=== PATIENT | female | born 1955 | race Caucasian/White ===

== ENCOUNTER → 2017-05-29 | Outpatient (CLI) | payer OTHER | LOC: RAD 08:35 | DX: Z12.31 Encounter for screening mammogram for malignant neoplasm of breast (principal) ==

== ENCOUNTER → 2017-08-22 | Outpatient (CLI) | payer OTHER | LOC: SLEEPLAB 08-01 12:42 | DX: G47.33 Obstructive sleep apnea (adult) (pediatric) (principal) ==

== ENCOUNTER → 2018-07-30 | Outpatient (CLI) | payer OTHER | LOC: RAD 07-16 10:17 | DX: Z12.31 Encounter for screening mammogram for malignant neoplasm of breast (principal) ==

== ENCOUNTER → 2019-06-14 | Outpatient (CLI) | payer OTHER ==
[~2019-06-14] VITALS: Ht 162.6 cm; Wt 127.5 kg
[~2019-06-14] MED LIST: CO-ENZYME Q101 EACH PO; DILTIAZEM ER180 M2 PO; ELIQUIS5 MG PO; FISH OIL 1,0001 EAC9 PO; FLEXERIL PO; IBUPROFEN 600600 M1 PO; MIRAPEX0.5 MG PO; NORTRIPTYLINE H25 M3 PO; PROAIR HFA8.5 GM INH; SERTRALINE HCL100 MG PO; SIMVASTATIN40 MG PO; VALSARTAN-HCTZ1 EAC1 PO; VITAMIN D-32000 UNIT PO
== END | disposition home or self-care (01) ==
LOC: GI 06-07 15:39
DX: Z12.11 Encounter for screening for malignant neoplasm of colon (principal); Z86.010 Personal history of colon polyps; K64.8 Other hemorrhoids; I10 Essential (primary) hypertension; E78.00 Pure hypercholesterolemia, unspecified; F32.9 Major depressive disorder, single episode, unspecified; Z95.0 Presence of cardiac pacemaker; Z86.73 Personal history of transient ischemic attack (TIA), and cerebral infarction without residual deficits; Z88.0 Allergy status to penicillin; Z79.899 Other long term (current) drug therapy; Z90.710 Acquired absence of both cervix and uterus; Z96.652 Presence of left artificial knee joint; Z79.01 Long term (current) use of anticoagulants; Z98.890 Other specified postprocedural states
CPT/HCPCS: 62110; 62900

== ENCOUNTER → 2019-08-02 | Outpatient (CLI) | payer OTHER | LOC: RAD 11:02 | DX: Z12.31 Encounter for screening mammogram for malignant neoplasm of breast (principal) ==

== ENCOUNTER → 2020-08-03 | Outpatient (CLI) | payer OTHER | LOC: BC 12:46 | PROVIDERS: ATTEND Nurse Practitioner | DX: Z12.31 Encounter for screening mammogram for malignant neoplasm of breast (principal) ==

== ENCOUNTER → 2020-10-05 | Outpatient (CLI) | payer OTHER | LOC: RAD 08:49 | PROVIDERS: ATTEND Family Medicine | DX: M79.89 Other specified soft tissue disorders (principal) ==

== ENCOUNTER → 2021-01-15 | Outpatient (CLI) | payer OTHER | LOC: RAD 12:07 | PROVIDERS: ATTEND Nurse Practitioner | DX: M25.571 Pain in right ankle and joints of right foot (principal); M77.31 Calcaneal spur, right foot; M19.071 Primary osteoarthritis, right ankle and foot; M25.471 Effusion, right ankle ==

== ENCOUNTER → 2021-04-05 | Day surgery (SDC) | payer OTHER ==
[~2021-04-05] VITALS: Ht 162.6 cm; Wt 137.9 kg
[~2021-04-05] MED LIST changes: +CELECOXIB200 MG PO; +LEVOTHYROXINE25 MCG PO; +OMEPRAZOLE40 MG PO; +XARELTO20 MG PO
--- NOTE | ~2021-04-05 | O ---
[facility] [place] [address] OPERATIVE REPORT Name: MO MACDONALD Room #: REG [facility].#: [id number] Admission: 04/05/21 Attend Phys: Nik Mabry MD Discharge: Date of : 53 Report #: [id number] THIS REPORT FOR: cc: Li Solis DNP, Mary E. DNP Joseph, Sigi P. MD ~ DATE OF SERVICE: 04/05/2021 PREOPERATIVE DIAGNOSIS: Failed lap-band. POSTOPERATIVE DIAGNOSIS: Failed lap-band. OPERATIVE PROCEDURE DONE: Laparoscopic lap band removal and port removal. OPERATING SURGEON: Nik Mabry MD. INDICATIONS FOR THE PROCEDURE: The patient is a 65-year-old female who has a history of a lap band placement. The patient managed to lose some weight; however, her weight loss was plateaued and has been having reflux symptoms and dysphagia and wishes to have this removed. The patient was advised lap band removal. PROCEDURE IN DETAIL: After explaining to the patient in detail and informed consent was obtained, the patient was identified in the preoperative holding area, the patient was transferred to the operating room and was placed in supine position. Sequential compression devices were placed for DVT prophylaxis. Preoperative antibiotics were given. After induction of anesthesia, the abdomen was prepped and draped in a sterile fashion. Through a left upper quadrant 1 cm incision and using Optiview technique, peritoneal cavity was entered and pneumoperitoneum was created. Thereafter, under direct vision, another 5 mm trocar was placed in the right mid abdomen. There were some adhesions that were noted in the right upper quadrant region, which had to be taken down to facilitate placement of another 12 mm trocar in the right flank through a 1 cm incision in the epigastrium, a Sofie retractor was introduced and the left lobe of the liver was retracted. Upon initial inspection, the lap band appeared to be in place. The adhesions over the lap band was gently taken down using hook electrocautery. The lap band was then unbuckled. The tubing was divided distal to the hub. The lap band was then removed. Absolute hemostasis was ensured. The abdomen was then deflated. I then identified the port in the epigastrium, extended the epigastric incision by another 2 cm. The port was then dissected off circumferentially and the port was then removed with the tubing intact. The incisions were then closed with a 4-0 Monocryl. Dermabond was applied. The patient was stable at the end of the procedure, the patient was awoken from anesthesia and was transferred to the recovery room in stable condition. [address] [address] OPERATIVE REPORT Name: MO MACDONALD Room #: REG [facility].#: [id number] Admission: 04/05/21 Attend Phys: Nik Mabry MD Discharge: Date of : 53 Report #: [id number] ESTIMATED BLOOD LOSS: Minimal. CONDITION: The patient is stable. FLUIDS GIVEN: Per anesthesia notes. SPECIMEN SENT: Lap band. COMPLICATIONS: None. ANESTHESIA: General anesthesia. By: [id number] Nik Mabry MD /nt
[2021-04-05 12:04] VITALS: BP 160/86
[2021-04-05 14:33] VITALS: BP 160/86
== END | disposition home or self-care (01) ==
LOC: OR 11:08
PROVIDERS: ATTEND Surgery
DX: K95.09 Other complications of gastric band procedure (principal); I10 Essential (primary) hypertension; E78.5 Hyperlipidemia, unspecified; J43.9 Emphysema, unspecified; I48.91 Unspecified atrial fibrillation; F32.9 Major depressive disorder, single episode, unspecified; Z98.890 Other specified postprocedural states; Z79.899 Other long term (current) drug therapy; Z96.653 Presence of artificial knee joint, bilateral; Z90.710 Acquired absence of both cervix and uterus; Z86.73 Personal history of transient ischemic attack (TIA), and cerebral infarction without residual deficits; Z95.0 Presence of cardiac pacemaker; Z98.41 Cataract extraction status, right eye; Z98.42 Cataract extraction status, left eye; Z79.01 Long term (current) use of anticoagulants
CPT/HCPCS: 50010; 50101; 50386; 50555; 52265; 52266; 53307; 54022; 54118; 56462; 56525; 56526; 57092; 58574; 58587; 58911; 62110; 62900; 70005

== ENCOUNTER 2021-06-05 13:36 | Inpatient (IN) | payer OTHER ==
[~2021-06-05] VITALS: Ht 162.6 cm; Wt 142.9 kg
--- NOTE | ~2021-06-05 | O ---
[facility] [place] [address] OPERATIVE REPORT Name: MO MACDONALD Room #: 436-P [facility] IN M.R.#: [id number] Admission: 06/05/21 Attend Phys: Yomi Alcazar MD Discharge: 06/11/21 Date of : 53 Report #: [id number] THIS REPORT FOR: cc: Li Solis DNP, Mary E. DNP Deardorff, Valerie A. MD ~ DATE OF SERVICE: 06/07/2021 PREOPERATIVE DIAGNOSES: Left index finger abscess with flexor tenosynovitis. POSTOPERATIVE DIAGNOSES: Left index finger abscess with flexor tenosynovitis. PROCEDURE PERFORMED: Left index finger incision and debridement, index flexor tendon sheath and dorsal abscess x 2. SURGEON: Dr. Mary Ellen Burgess. TYPE OF ANESTHESIA: General mask anesthesia. ESTIMATED BLOOD LOSS: Minimal. TOURNIQUET TIME: Approximately 15 minutes. COMPLICATIONS: None. CONDITION: Stable. DISPOSITION: To recovery room. INDICATIONS: The patient is a 65-year-old female with the above-mentioned diagnoses. She has failed IV antibiotic treatment for approximately 36-48 hours as well as failed oral antibiotic treatment for approximately 48 hours prior to the IV antibiotic treatment. The risks, benefits, alternatives and complications were discussed including but not limited to infection, damage to vessels or nerves, incomplete wound healing, incomplete resolution of the infection necessitating more surgery and wound healing problems and stiffness. Informed consent was obtained, the correct extremity was identified and labeled by myself after verbal confirmation of the patient as well as visual confirmation and signed informed consent. DESCRIPTION OF PROCEDURE: The patient was brought to the operating room and placed in supine position. The left lower extremity was sterilely prepped and draped in the usual fashion. Timeout was taken to verify correct patient, procedure, operative site, all concurred. The arm was elevated, exsanguinated proximal to the wrist and the tourniquet was inflated. Next, there were 2 puncture wounds on the dorsal aspect of the index finger that had focal [address] [address] OPERATIVE REPORT Name: TORRESMO ISAIAS Room #: 436-[facility] IN M.R.#: [id number] Admission: 06/05/21 Attend Phys: Yomi Alcazar MD Discharge: 06/11/21 Date of : 53 Report #: [id number] erythema. The skin was incised. Dissection was carried down bluntly with hemostat. No definite pockets of purulent fluid were found. The areas were thoroughly debrided with a synovial rongeur. Next, attention was placed to the flexor tendon sheath. A Tavo type incision was made at the PIP joint and then a proximal oblique incision was made proximal to the A1 gilda. Dissection was carried down through fascia with tenotomy scissors in each incision. Dissection was carried all the way to the flexor tendon sheath, taking care to protect neurovascular structures. The flexor tendon sheath was identified. A cloudy fluid was immediately encountered. Next, this tendon sheath was irrigated thoroughly using an 18-gauge angiocatheter and 20 mL syringes. The tendon sheath was thoroughly irrigated. The remainder of the wounds were thoroughly irrigated. Approximately 50% of the A1 gilda was incised in order to facilitate irrigation. The wounds were all thoroughly irrigated. The tourniquet was deflated. The wounds were dressed with sterile gauze. She was placed in a bulky dressing. All fingers were pink, brisk capillary refill at the conclusion of case. All sponge and needle counts were correct. The patient transferred to postoperative recovery room in stable condition. By: [id number] Mary Ellen Burgess MD /nt
[2021-06-05 13:39] VITALS: BP 181/84
[2021-06-05 14:01] LABS: ABSOLUTE NEUTROPHILS 5.1 thou/uL (1.4-8.2); BASOPHILS 0.7 % (0.0-2.0); EOSINOPHILS 3.1 % (0.0-3.0); HEMATOCRIT 33.6 % (37.0-47.0); HEMOGLOBIN 10.5 gm/dL (12.0-15.0); LYMPHOCYTES 24.2 % (24.0-44.0); MCH 24.1 pg (26.0-34.0); MCHC 31.3 g/dL (28.0-37.0); MONOCYTES 7.2 % (1.0-8.0); PLATELET COUNT 267 thou/uL (150-400); POLYS 64.8 % (36.0-66.0); RBC 4.37 mil/uL (4.20-5.00); RDW 16.1 % (10.5-14.5); WBC 7.9 thou/uL (4.0-11.0)
[2021-06-05 14:10] LABS: CALCIUM 8.9 mg/dL (8.5-10.1); CREATININE 0.9 mg/dL (0.6-1.0)
[2021-06-05 14:17] LABS: ALBUMIN 3.7 g/dL (3.4-5.0); TOTAL BILIRUBIN 0.4 mg/dL (0.2-1.0); TOTAL PROTEIN 7.8 g/dL (6.4-8.2)
[2021-06-05] MEDS ORDERED: HYDROCODON-ACE1 EAC8 PO (14:23)
[2021-06-05 14:34] VITALS: BP 137/67
[2021-06-05 18:22] VITALS: BP 127/48
[2021-06-05 20:33] VITALS: BP 151/76
--- NOTE | 2021-06-06 03:41 | NUR ---
ADMISSION ASSESSMENT COMPLETED. PT ALERT AND ORIENTED. WITH CAT BITE TO LEFT HAND. IVF INFUSING WELL IV ABTS GIVEN, AFEBRILE. UP STEADILY TO THE BATHROOM.VOIDING ADEQUATELY. L HAND ELEVATED ON PILLOW. SWELLING GOING DOWN. SPOT WELDER LINE AND WITH SOME REDNESS.DENIES NEED FOR PIN MEDS.CPAP AT [facility].
[2021-06-06 05:26] LABS: ABSOLUTE NEUTROPHILS 3.9 thou/uL (1.4-8.2); BASOPHILS 0.7 % (0.0-2.0); EOSINOPHILS 2.8 % (0.0-3.0); HEMATOCRIT 32.1 % (37.0-47.0); HEMOGLOBIN 10.3 gm/dL (12.0-15.0); MCH 24.5 pg (26.0-34.0); MCV 76.4 fL (80.0-100.0); MONOCYTES 6.3 % (1.0-8.0); PLATELET COUNT 247 thou/uL (150-400); POLYS 64.2 % (36.0-66.0); RDW 16.2 % (10.5-14.5); WBC 6.1 thou/uL (4.0-11.0)
[2021-06-06 06:07] LABS: MAGNESIUM 2.1 mg/dL (1.8-2.4); POTASSIUM 4.1 mmol/L (3.5-5.1)
[2021-06-06 08:22] VITALS: BP 136/74
--- NOTE | 2021-06-06 13:36 | NUR ---
ASSUMED PT CARE THIS AM. PT IS ALERT & ORIENTED X4. PT HAS IV SITE ON LAC RUNNING NS @80ML/HR. PT IS UP AD LIZZIE TO THE BATHROOM. LAST BM WAS YESTERDAY. PT USES CPAP FROM HOME. PT C/O OF PAIN ON L HAND AND GIVEN PAIN MEDICATION AND EDUCATED TO ELEVATED L HAND. PT TOLERATED DIET AND MEDICATION. PT IS CURRENTLY SITTING ON THE CHAIR. WILL CONTINUE TO MONITOR PT. FOLLOW POC.
--- NOTE | 2021-06-06 14:14 | NUR ---
ASSESSMENT: CM REVIEWED CHART AND SPOKE WITH PT AT THE BEDSIDE. PT WAS ADMITTED AFTER A CAT BIT AND POSSIBLE CELLULITIS. PT IS BEING SEEN BY ID AND ORTHO. PT MAY REQUIRE A SURGICAL DEBRIDEMENT IF NO SIGNS OF IMPROVEMENT. PT IS CURRENTLY ON IV ANBX. PT REPORTS LIVING AT HOME WITH HER IN A HOUSE. PT REPORTS 2 STEPS TO ENTER WITH NO STEPS ONCE INSIDE. PT STATES SHE IS NORMALLY INDEPENDENT WITH ADLS AND AMBULATION BUT DOES HAVE A WALKER AT HOME FROM A PAST SURGERY. PT ALSO HAS A CPAP MACHINE FOR BEDTIME. PER RECORDS PT TOOK IN A STREY CAT THAT BIT HER WHEN SHE PLACED HER HAD IN THE [place]. PT REPORTS NO HX OF PAST HH OR SNF. PT MAY REQUIRE IV ANBX BUT CM WILL AWAIT FURTHER RECOMMENDATIONS AT THIS TIME.
[2021-06-06 16:25] VITALS: BP 137/68
[2021-06-06 19:02] VITALS: BP 150/77
--- NOTE | 2021-06-07 02:15 | NUR ---
ASSUMED CARE OF PT AT 1900. PT IS A/O X4 AND IS UP WITH SBA TO THE BR. ROOM AIR. VSS AFEBRILE. KPAD IN PLACE TO LEFT HAND PER INSTRUCTION OF WHO VISITED THIS EVENING. PT C/O PAIN TO THE LEFT HAND. PRN PAIN MEDICATION GIVEN DIRECTED. FALL PRECAUTIONS IN PLACE, CALL LIGHT IS WITHIN REACH. AT THIS TIME PT IS IN HER BED WEARING HER CPAP MACHINE APPEARING TO BE RESTING WITH EYES CLOSED WITHOUT ANY SIGNS OF DISTRESS. PT IS PLEASANT AND COOPERATIVE. CALLS OUT APPROPRIATELY FOR ASSISTANCE.
[2021-06-07 04:18] VITALS: BP 107/57
[2021-06-07 07:13] VITALS: BP 139/76
--- NOTE | 2021-06-07 11:31 | NUR ---
Assumed pt care this am, left hand and fore arm edema noted with heating pad on. Up ad frances, was placed NPO and went down for surgery this am.
--- NOTE | 2021-06-07 11:33 | NUR ---
Pt triggers for high BMI. Noted with dx cat bite with cellulitis/infection L hand. NPO majority of this visit, on ABT. Not in room x 3 attempts to visit this date. Follow up for nutrition education needs.
--- NOTE | 2021-06-07 15:47 | NUR ---
ON-GOING ASSESSMENT: CM REVIEWED CHART AND SPOKE WITH PATIENT. PT HAD I AND D TODAY AND REMAINS ON IV ANBX. UNCLEAR ON PLANS FOR IV ANBX AT THIS TIME BUT CM DISCUSSED WITH PATIENT ABOUT CHECKING BENEFITS FOR HOME INFUSION INCASE SHE NEEDS IT. PT IS AGREEABLE WITH PLAN AND AGREEABLE WITH REFERRAL TO AN INFUSION COMPANY AND HAS NO PREFERENCE OF COMPANY. CM FAXED REFERRAL TO [facility] AND REQUESTED THEY CHECK BENEFITS. PT ALSO HAS NO PREFERENCE OF HH. CM FAXED REFERRAL TO [facility] HH.
[2021-06-07 16:16] VITALS: BP 167/92
--- NOTE | 2021-06-08 00:51 | NUR ---
ASSESSED AT START OF SHIFT. PT RESTING IN BED. IV INTACT AND FLUIDS INFUSING. PT UP AD LIZZIE TO THE BATHROOM. WEARS CPAP AT NIGHT. LEFT HAND DRESSING INTACT. DENIES PAIN, N/V. CALL LIGHT AT REACH AND WILL CONT TO MONITOR.
[2021-06-08 04:11] VITALS: BP 136/63
[2021-06-08 07:38] VITALS: BP 139/83
--- NOTE | 2021-06-08 12:18 | HC ---
[facility] [place] [address] CONSULTATION Name: MO MACDONALD Room #: 436-P ADM IN M.R.#: [id number] Admission: 06/05/21 Attend Phys: Yomi Alcazar MD Discharge: Date of : 53 Report #: [id number] THIS REPORT FOR: cc: Li Solis DNP, Mary E. DNP Deardorff, Valerie A. MD ~ DATE OF SERVICE: 06/06/2021 REASON FOR CONSULTATION: Left index finger cat bite/infection. HISTORY OF PRESENT ILLNESS: The patient is a 65-year-old right-hand dominant female who reported that on last weekend, she was placing a feral cat into a container and the cat bit her. She saw her primary care doctor and started on ____ and doxycycline. She saw me in the office on the date of admission, and I noticed continued redness and swelling after 2 days of doxycycline antibiotic, and I recommended that she go to [facility] to be evaluated and probably admitted to the hospitalist service for IV antibiotics. She reports the swelling has somewhat become more localized into the digit, mostly dorsally. She has continued pain and swelling and erythema. She denies any fever. REVIEW OF SYSTEMS: NEUROLOGIC: Denies numbness or tingling. MUSCULOSKELETAL: See HPI. PAST MEDICAL HISTORY: Significant for removal of a lap band; hypothyroidism, depression, hyperlipidemia, sleep apnea, atrial fibrillation, history of a pacemaker, and COPD/asthma. PAST SURGICAL HISTORY: Left total knee replacement, pacemaker, bilateral cataracts, and right total knee. ALLERGIES: PENICILLIN. HOME MEDICATIONS: Include Levothyroxine, hydrocodone, sertraline, pramipexole, nortriptyline, valsartan, simvastatin, diltiazem, albuterol, cholecalciferol, Coenzyme Q10, Gates-3 fatty acids, rivaroxaban, omeprazole, and Celebrex. SOCIAL HISTORY: Denies smoking and drinking alcohol occasionally. She is right hand dominant. LABORATORY DATA: Laboratory studies done on 06/06/2021 show white blood cell count of 6.1, hemoglobin 10.3, hematocrit 32.1, and platelet count 247. ESR done on 06/05/2021 is elevated at 49. Chemistry on 06/06 was essentially normal. Blood cultures have been negative. PHYSICAL EXAMINATION: [address] [address] CONSULTATION Name: MO MACDONALD Room #: [address] [place] [address] [place] .R.#: [id number] Admission: 06/05/21 Attend Phys: Yomi Alcazar MD Discharge: Date of : 53 Report #: [id number] GENERAL: The patient is awake, alert, and oriented. She is in a mild amount of distress due to pain in her finger. VITAL SIGNS: Show a temperature of 36.9, heart rate 75, respiratory rate 18, blood pressure 136/74, and pulse oximetry is 96% on room air. EXTREMITIES: Examination of her left upper extremity, there is diffuse dorsal edema. Multiple puncture sites in the dorsal aspect of the index finger. There is edema to the mid hand dorsally. Volarly, there is edema and erythema from approximately at the level of A1 gilda area to the PIP joint with tenderness, erythema, some pain with passive extension, and difficulty flexing. RADIOGRAPHS: Three views of the left hand did not show any osseous abnormality. ASSESSMENT AND PLAN: Left index finger cat bite injury with cellulitis, possible early flexor tenosynovitis. The patient has been on IV antibiotics for less than 24 hours. I will check on her again tomorrow and advised her if she is significantly worse, to have the nurse to call me and we can potentially make her n.p.o. after midnight and perform a surgical debridement tomorrow; however, if she is significantly improved, we will continue observation. Questions were encouraged and answered to the best of my ability. Continue antibiotics per Infectious Disease and I will watch her closely. <ELECTRONICALLY SIGNED> By: Mary Ellen Burgess MD 06/08/21 1218 [id number] Mary Ellen Burgess MD /nt
--- NOTE | 2021-06-08 15:48 | NUR ---
ON-GOING ASSESSMENT: CM REVIEWED CHART AND SPOKE WITH ATTENDING WHO REPORTS PT WILL LIKELY BE ABLE TO TRANSITION TO ORAL ANBX SOON PENDING ID. IF FOR ANY REASON PT REQUIRES HOME IV INFUSION (BENEFITS HAVE ALREADY BEEN CHECKED WITH [employer] AND HER DEDUCTIBLE HAS BEEN MET AND LIKELY WILL MEET HER OUT OF POCKET WHILE HOSPITALIZED SO HOME INFUSION SHOULD BE COVERED). IF NEEDING HOME IV ANBX CONTACT MICHELLE [phone] [facility] AND NURSING ARE AVAILABLE ALL DAY. IF PATIENT IS NEEDING HOME HEALTH SERVICES AT DISCHARGE [facility] CAN ACCEPT PATIENT AND WILL DISCHARGE ORDERS FAXED TO THEM AT [phone]. [facility] CAN BE REACHED AT [phone].
[2021-06-08 15:51] VITALS: BP 139/83
[2021-06-08 17:04] VITALS: BP 130/76
[2021-06-08 22:02] VITALS: BP 140/82
--- NOTE | 2021-06-09 00:37 | NUR ---
UPON SHIFT REPORT, PT SITTING IN RECLINER AT BEDSIDE, REPORTS 3/10 PAIN IN LEFT HAND. UPON SHIFT ASSESSMENT, PT AOX4. PT REPORTS 6/10 PAIN IN LEFT HAND. PT RECEIVING PRN PO NORCO Q4HR WITH PRN PO APAP Q4HR AVAILABLE. WOUND CARE PERFORMED, PT OBSERVED WASHING LUE WITH SOAPY WATER, PT PERFORMED ROM EXERCISES. PAIN NOTED TO WORSEN WITH ROM AND GENERAL MOVEMENT OF LUE. PT DENIES SOB WHILE ON ROOM AIR, CPAP USE AT HS. PT TOLERATING PO INTAKE OF FLUIDS AND HEART HEALTHY DIET WITHOUT ISSUE. PT WITHOUT NAUSEA OR EMESIS. PT AMBULATING INDEPENDENTLY IN ROOM AND TO BATHROOM. PT RESTING IN BED THROUGHOUT SHIFT, FREQUENT REPOSITIONING ENCOURAGED, PT NOTED TO SHIFT INDEPENDENTLY. SENSATION INTACT, CAPILLARY REFILL LESS THAN 3SEC, PERIPHERAL PULSES PALPABLE IN ALL EXTREMITIES. PT ENCOURAGED TO NOTIFT STAFF FOR ALL NEEDS, CALL LIGHT WITHIN REACH, BED LOCKED IN LOWEST POSITION, ROOM REMAINS NEAR NURSES STATION, FREQUENT MONITORING WILL CONTINUE.
[2021-06-09 07:39] VITALS: BP 152/74
--- NOTE | 2021-06-09 12:30 | NUR ---
ASSUMED PT CARE THIS AM. PT IS ALERT & ORIENTED X4. PT HAS IV SITE ON LAC RUNNING NS @80ML/HR. PT IS UP AD LIZZIE. PT IS ON ROOM AIR AT DAY AND CPAP AT HOME. DID WOUND CARE THIS AM. PER ORTHO AND HOSPITALIST STAND POINT OK FOR DC. AWAITING FOR VAT TO PLACE AN PICC LINE. GIVEN PAIN MEDICATION PRIOR WOUND CARE. WILL CONTINUE TO MONITOR PT. FOLLOW POC.
--- NOTE | 2021-06-09 14:18 | NUR ---
DISCUSSED RISKS OF DVT AND INFECTION AND THE PATIENT VERBALIZED UNDERSTANDING. THE CONSENT WAS SIGN. THE RIGHT BASILIC AND BRACHIAL WERE BOTH 35% VEIN VS CATHETER. THE LINE WAS PLACED PER HOSPITAL POLICY AFTER A BEDSIDE TIMEOUT WAS COMPLETED. THE BASILIC VEIN WAS DIFFICULT TO CANNULATE AND AFTER 3 ATTEMPTS THE RIGHT BRACHIAL VEIN WAS CANNULATED. THE LINE WAS TRIMMED TO 44CM AND ADVANCED WITHOUT DIFFICULTY TO 5CM EXTERNAL. THE LINE WAS CONFIRMED AT 5CM WITH PEAKED PWAVES AT THE CAJ. THE LINE WAS SECURED AND RELEASED FOR USE.
[2021-06-09 15:24] VITALS: BP 140/73
[2021-06-09 19:51] VITALS: BP 154/73
--- NOTE | 2021-06-10 04:14 | NUR ---
PT IS A/O X4 AND IS UP AD LIZZIE. C/O HAND PAIN. PRN PAIN MEDICATION GIVEN DIRECTED. PT IS VERY IRRITABLE AND STATES SHE SHOULD HAVE BEEN DISCHARGED AND IS UPSET THAT SHE IS HERE. MEDICATIONS GIVEN PER MAR. CALLS OUT APPROPRIATELY FOR ASSISTANCE
[2021-06-10 08:58] VITALS: BP 154/71
--- NOTE | 2021-06-10 11:03 | NUR ---
ASSUMED PT CARE THIS AM. PT IS ALERT & ORIENTED X4. PT HAS MELITON PICC LINE SINGLE LUMEN. PT IS UP AD LIZZIE. PT USES CPAP FROM HOME AT NIGHT. DID WOUND DRESSING THIS AM. INFORMED HOSPITALIST ABOUT WHAT HAPPENED YESTERDAY AND INFORMED HER THAT CM WILL TALK TO HER REGARDING ABOUT IT. PT RATED PAIN 3/10 ON L HAND. PT TOLERATED DIET WELL. NO C/O OF NAUSEA AND VOMITING. AWAITING FOR DC ORDERS. WILL CONTINUE TO MONITOR PT. FOLLOW POC.
[2021-06-10 16:50] VITALS: BP 159/75
[2021-06-10 19:43] VITALS: BP 173/95
[2021-06-10 21:42] VITALS: BP 173/95
--- NOTE | 2021-06-11 03:00 | NUR ---
UPON SHIFT ASSESSMENT, PT AOX4. PT REPORTS 4-5/10 PAIN IN LEFT HAND. DRESSING TO LEFT HAND CLEAN, DRY, AND INTACT. PT RECEIVING PRN PO NORCO Q4HR WITH PRN PO APAP Q4HR AVAILABLE. PT DENIES SOB WHILE ON ROOM AIR, USES CPAP AT HS. PT TOLERATING PO INTAKE OF FLUIDS AND HEART HEALTHY DIET WITHOUT ISSUE. PT WITHOUT NAUSEA OR EMESIS. PT INDEPENDENTLY AMBULATING IN ROOM AND TO BATHROOM, RESTING IN CHAIR AND BED OTHERWISE. FREQUENT REPOSITIONING ENCOURAGED WHILE IN BED, PT SHIFTING INDPENDENTLY. SENSATION INTACT, CAPILLARY REFILL LESS THAN 3SEC, PERIPHERAL PULSES PALPABLE IN ALL EXTREMITIES. PT ENCOURAGED TO NOTIFY STAFF FOR ALL NEEDS, CALL LIGHT WITHIN REACH, BED LOCKED IN LOWEST POSITION, ROOM REMAINS NEAR NURSES STATION, FREQUENT MONITORING WILL CONTINUE.
[2021-06-11 05:34] VITALS: BP 184/93
[2021-06-11 08:02] VITALS: BP 172/85
--- NOTE | 2021-06-11 11:14 | NUR ---
Discussed during los with the hospitalist today. DC home today, iv abx and home health. To spoke with ketan and she is ready to dc home. IV abx was sent to [facility] . To passed on information to hospitalist. Will fax dc orders to [facility],f # [phone], and to [facility],f # [phone].
[2021-06-11] MEDS ORDERED: INVANZ1 GM IV (11:53)
[2021-06-11 12:04] VITALS: BP 139/83
[2021-06-11] MEDS ORDERED: HYDROCODON-ACE1 EAC7 PO (12:36)
--- NOTE | 2021-06-11 13:09 | NUR ---
Assumed pt care at 7am.Pt up in chair resting. Assessment completed.vss.Pt reported calling for nurse at the beginning of shift but waited for over an hour before seen the nurse. Rn apologized for showing up late due to some other pt's needs. Pt wanted to dc home laverne.Dr Alcazar notified and she rounded on pt. Dc order noted. Pt ate breakfast and lunch. workforce management manager arranged for home health and iv antibiotic. Dc summary compile and reviewed with pt. Javy supplies given with rx.Picc line care done.At 1309,pt dc home per wc with all her personal belongings.
== END 2021-06-11 13:09 | disposition home health service (06) | DRG 513 ==
LOC: ER 13:36 → 4S 15:52 → EROBS 15:52 → 4S 18:34
PROVIDERS: Nurse Practitioner; ADMIT Hospitalist; ATTEND Hospitalist
PROC: 5A09357 Assistance with Respiratory Ventilation, Less than 24 Consecutive Hours, Continuous Positive Airway Pressure (ICD-10-PCS; 2021-06-06)
PROC: 0LD80ZZ Extraction of Left Hand Tendon, Open Approach (ICD-10-PCS; principal; 2021-06-07)
PROC: 05HY33Z Insertion of Infusion Device into Upper Vein, Percutaneous Approach (ICD-10-PCS; 2021-06-09)
DX: M65.142 Other infective (teno)synovitis, left hand (principal); L02.512 Cutaneous abscess of left hand; L03.114 Cellulitis of left upper limb; Z68.43 Body mass index [BMI] 50.0-59.9, adult; S61.452A Open bite of left hand, initial encounter; S63.691A Other sprain of left index finger, initial encounter; I48.91 Unspecified atrial fibrillation; J44.9 Chronic obstructive pulmonary disease, unspecified; G47.30 Sleep apnea, unspecified; K58.9 Irritable bowel syndrome, unspecified; E66.9 Obesity, unspecified; I10 Essential (primary) hypertension; F32.9 Major depressive disorder, single episode, unspecified; Z96.652 Presence of left artificial knee joint; J45.909 Unspecified asthma, uncomplicated; Z96.653 Presence of artificial knee joint, bilateral; E78.5 Hyperlipidemia, unspecified; E03.9 Hypothyroidism, unspecified; Z20.822 Contact with and (suspected) exposure to COVID-19; W55.01XA Bitten by cat, initial encounter; Z98.42 Cataract extraction status, left eye; Z98.41 Cataract extraction status, right eye; Z95.0 Presence of cardiac pacemaker; Z90.710 Acquired absence of both cervix and uterus; Z86.73 Personal history of transient ischemic attack (TIA), and cerebral infarction without residual deficits; Z88.0 Allergy status to penicillin; Y93.89 Activity, other specified; Y92.89 Other specified places as the place of occurrence of the external cause; Y99.8 Other external cause status
CPT/HCPCS: 10102; 27000; 50010; 50101; 50386; 57006; 57091; 57179; 62110; 62900; 70005

== ENCOUNTER → 2021-10-05 | Outpatient (CLI) | payer OTHER ==
[~2021-10-05] MED LIST changes: +HYDROCODON-ACE1 EAC7 PO; +HYDROCODON-ACE1 EAC8 PO; +INVANZ1 GM IV
== END ==
LOC: BC 09-28 11:04
PROVIDERS: ATTEND Family Medicine
DX: Z12.31 Encounter for screening mammogram for malignant neoplasm of breast (principal)